=== PATIENT | male | born 1935 | race Caucasian/White ===

== ENCOUNTER → 2016-04-26 | Outpatient (CLI) | payer MEDICARE | LOC: PCVCCLINIC 13:00 | PROVIDERS: ATTEND Internal Medicine | DX: R55 Syncope and collapse (principal); E78.5 Hyperlipidemia, unspecified | CPT/HCPCS: 80061; 93005; G0463 ==

== ENCOUNTER → 2016-05-01 | Outpatient (CLI) | payer MEDICARE, OTHER | LOC: PCVCIMAG 13:17 | PROVIDERS: ATTEND Internal Medicine | DX: I65.21 Occlusion and stenosis of right carotid artery (principal); I07.1 Rheumatic tricuspid insufficiency | CPT/HCPCS: 93306; 93880 ==

== ENCOUNTER → 2016-05-30 | Outpatient (CLI) | payer MEDICARE, OTHER ==
[~2016-05-30] MED LIST: REGADENOSON 0.4 MG/5 ML DISP.SYRIN. IV ONE
== END | disposition home or self-care (01) ==
LOC: PCVCIMAG 08:09
PROVIDERS: ATTEND Internal Medicine
DX: I47.1 Supraventricular tachycardia (principal); R55 Syncope and collapse; E78.5 Hyperlipidemia, unspecified
CPT/HCPCS: 78452; 93017; A9500; G0463; J2785